=== PATIENT | male | born 2000 ===

== ENCOUNTER → 2021-08-31 | Outpatient (CLI) | payer SELFPAY ==
[2021-08-31 10:54] LABS: Hematocrit 39.4 % (37.0-53.0); Hemoglobin 13.1 g/dL (13.5-17.5); Mean Corpuscular HGB 27.9 pg (26.0-34.0); Mean Corpuscular HGB Conc 33.2 g/dL (31.5-36.5); Mean Corpuscular Volume 84 fL (80-100); Mean Platelet Volume 10.1 fL (9.1-12.4); Platelet Count 196 K/mm3 (150-400); RDW Coefficient Variation 12.9 % (11.7-14.2); RDW Standard Deviation 39.1 fL (35.1-46.3); Red Blood Cell Count 4.69 M/mm3 (4.30-5.90); White Blood Cell Count 7.59 K/mm3 (4.00-11.30)
[2021-08-31 11:17] LABS: Albumin, Blood 3.4 g/dL (3.4-5.0); Albumin/Globulin Ratio 0.8 (0.8-1.8); Bun/Creatinine Ratio 9.8 (12.0-20.0); Calcium, Blood 8.6 mg/dL (8.5-10.1); Creatinine, Blood 0.81 mg/dL (0.60-1.20); Potassium, Blood 4.2 mmol/L (3.5-5.5); Total Protein, Blood 7.4 g/dL (6.4-8.2)
[2021-08-31 11:44] LABS: BASOPHILS ABSOLUTE MAN 0.07 K/mm3 (0.00-0.23); BASOPHILS PERCENT MAN 1 % (0-2); EOSINOPHILS PERCENT MAN 0 % (0-6); LYMPHOCYTES ABSOLUTE MAN 5.54 K/mm3 (0.84-5.20); LYMPHOCYTES PERCENT MAN 69 % (21-46); MONOCYTES ABSOLUTE MAN 0.22 K/mm3 (0.16-1.47); MONOCYTES PERCENT MAN 3 % (4-13); NEUTROPHILS ABSOLUTE MAN 1.74 K/mm3 (1.96-9.15); SEG NEUTROPHILS PERCENT MAN 23 % (41-73); TOTAL CELLS COUNTED 100
[2021-08-31 11:46] LABS: LYMPHOCYTES % ATYPICAL MANUAL 4 % (0-0)
[2021-09-02 00:10] LABS: CHLAMYDIA TRACHOMATIS, NAA Positive (Negative)
== END ==
LOC: LAB SHORT 10:05
PROVIDERS: Physician Assistant
DX: R10.9 Unspecified abdominal pain (principal); R30.0 Dysuria
CPT/HCPCS: 80053; 85025; 87086; 87491; 87591

== ENCOUNTER → 2021-09-02 | Outpatient (CLI) | payer OTHER ==
[2021-09-03 22:07] LABS: HBSAG SCREEN Negative (Negative); HCV AB <0.1 (0.0-0.9); HEP A AB, IGM Negative (Negative); HEP B CORE AB, TOT Negative (Negative)
== END ==
LOC: LAB SHORT 14:45 → LAB 14:45
PROVIDERS: Physician Assistant
DX: R11.0 Nausea (principal)
CPT/HCPCS: 86704; 86708; 86803; 87340